=== PATIENT | female | born 1950 | race Caucasian/White ===

== ENCOUNTER → 2023-08-18 18:41 | Outpatient (REF) | payer OTHER, SELFPAY | LOC: MRI 18:41 | PROVIDERS: ATTENDING PHYSICIAN Physician Assistant; FAMILY PHYSICIAN Nurse Practitioner Adult Health; REFERRING PHYSICIAN Neurological Surgery | DX: Z98.890 Other specified postprocedural states (principal) | CPT/HCPCS: 72156; A9575 ==

== ENCOUNTER → 2023-11-12 08:37 | Outpatient (REF) | payer OTHER, SELFPAY | LOC: HWRAD 08:37 | PROVIDERS: ATTENDING PHYSICIAN Nurse Practitioner Adult Health | DX: E04.1 Nontoxic single thyroid nodule (principal); R91.8 Other nonspecific abnormal finding of lung field | CPT/HCPCS: 71250 ==

== ENCOUNTER → 2023-11-21 09:29 | Outpatient (REF) | payer OTHER, SELFPAY | LOC: HWRAD 09:29 | PROVIDERS: ATTENDING PHYSICIAN Nurse Practitioner Adult Health | DX: I65.21 Occlusion and stenosis of right carotid artery (principal); E04.1 Nontoxic single thyroid nodule | CPT/HCPCS: 76536; 93880 ==

== ENCOUNTER → 2024-01-27 17:03 | Outpatient (REF) | payer OTHER, SELFPAY | LOC: RAD 17:03 | PROVIDERS: ATTENDING PHYSICIAN Internal Medicine | DX: R60.0 Localized edema (principal) | CPT/HCPCS: 93971 ==

== ENCOUNTER → 2024-02-03 11:12 | Outpatient (REF) | payer OTHER, SELFPAY | LOC: HWRAD 11:12 | PROVIDERS: ATTENDING PHYSICIAN Nurse Practitioner Adult Health | DX: M25.561 Pain in right knee (principal) | CPT/HCPCS: 73564 ==

== ENCOUNTER 2024-05-24 20:27 | Observation (INO) | payer OTHER, SELFPAY ==
[2024-05-24] VITALS (7 sets, daily range): BP systolic 122–141; BP diastolic 63–81; BMI 27.7
[2024-05-24 16:28] LABS: ALT (SGPT) 12 U/L (0-35); AST (SGOT) 20 U/L (14-36); Albumin 4.4 g/dl (3.5-5.0); Alkaline Phosphatase 63 U/L (38-126); Blood Urea Nitrogen 8 mg/dl (7-17); Calcium 9.5 mg/dl (8.4-10.2); Carbon Dioxide 19 mmol/L (22-30); Chloride 112 mmol/L (98-107); Glucose 104 mg/dl (70-99); Potassium 4.2 mmol/L (3.5-5.1); Sodium 144 mmol/L (135-145); Total Bilirubin 0.8 mg/dl (0.2-1.3); Total Protein 6.9 g/dl (6.3-8.2); eGFR > 60.00
[2024-05-24 16:45] LABS: Troponin I < 0.012 ng/ml
[2024-05-24 17:43] LABS: % Basophils 0.2 % (0-2); % Eosinophils 0.4 % (0-6); % Immature Granulocytes 0.2 % (0-0.5); % Lymphocytes 15.6 % (20.5-51.1); % Monocytes 7.3 % (1.7-9.3); % Neutrophils 76.3 % (42.2-75.2); Absolute Lymphocytes 1.3 10^3/uL (1.2-3.4); Absolute Monocytes 0.6 10^3/uL (0.1-0.6); Absolute Neutrophils 6.5 10^3/uL (1.4-6.5); Hematocrit 42.8 % (37.0-47.0); Hemoglobin 13.7 g/dL (12.0-16.0); Mean Corpuscular Hgb 28.8 pg (27.0-31.0); Mean Corpuscular Volume 89.9 fL (81.0-99.0); Mean Platelet Volume 11.2 fL (7.4-10.4); Nucleated Red Blood Cells % 0 %; Platelet Count 184 10^3/uL (130-400); Red Blood Cell Count 4.76 10^6/uL (4.20-5.40); Red Cell Dist. Width 13.5 % (11.5-14.5); White Blood Cell Count 8.5 10^3/uL (4.8-10.8)
[2024-05-24] MEDS: ANTIVERT 25 MG PO ×2 (18:31→23:51)
--- NOTE | 2024-05-24 19:28 | ED.GENMED ---
History of Present Illness
General
Chief Complaint: Dizziness
Source: patient
Time Seen by Provider: 05/24/24 18:05
History of Present Illness
History of Present Illness:
73-year-old female with past medical history of hypertension, hyperlipidemia, COPD presenting to the emergency department for evaluation of vertigo that started earlier today, caused her to fall injuring her left knee, still with mild left knee pain
today but stating the vertigo is what brought to the ER for evaluation. Patient states that at rest symptoms seem to be improved if not nearly resolved. She notes that she has daily headaches and today's headache is not any different than her
usual but is otherwise denying any visual changes, focal weakness or numbness, chest pain or shortness of breath, nausea, vomiting or any other concerns. Social history was noted for former, no alcohol use, no drug use. No known family history of
any neurological complications. 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
Past History
Past History
ED Past Medical History: COPD, HTN and Other (Arthritis)
ED Past Surgical History: Brain and Orthopedic
Social History
Tobacco: Smoker
Alcohol: None
Drug: None
Personal:
Living: with family
Review of Systems
Review of Systems
All Other Systems: ROS reviewed and negative except as documented in HPI and ROS
Phy Exam
Physical Exam
Physical Exam:
GENERAL: Alert , in no apparent distress
HEAD: NCAT
EYE: pupils equal and reactive, 3 mm bilateral, EOMI, faint leftward 1 beat horizontal nystagmus
NECK: Supple,
ENT: o/p clr, mmm. Unable to visualize TM bilateral due to cerumen
CARDIAC: Regular rate and rhythm .
LUNGS: Clear breath sounds bilaterally, no acute respiratory distress, no wheezes/rales/rhonchi
NEUROLOGICAL: Alert and oriented, no focal neuro deficits, no dysmetria
SKIN: Warm and dry, skin intact.
MUSCULOSKELETAL: No edema, well perfused. Mild tenderness along the inferior patella of the left knee
PSYCH: Normal and appropriate interaction.
Scores
Heart Failure Risk
Heart Failure Risk Score: Not Applicable
Heart Score for Chest Pain Patients
STEMI patient?: Not applicable
Withdrawal Assessment of Alcohol
Withdrawal Assessment Completed?: Not applicable
Course
Orders/Labs/Results
Orders:
Orders
05/24/24 15:17
Electrocardiogram (*1) Urgent
Reason for Study: Vertigo / Dizzy
EKG- Treatment ONCE
05/24/24 15:33
Comprehensive Metabolic Panel Urgent
Troponin I Urgent
05/24/24 17:27
Complete Blood Count/With Diff Urgent
05/24/24 18:18
CT Head W/o Iv Contrast Urgent
Comment:
Reason For Exam: vertigo, hx cerebellar mass
Meclizine [Antivert] 25 mg PO NOW STA
Abnormal Lab Results
05/24/24 05/24/24
15:33 17:27
MCHC 32.0 L g/dL
(33.0-37.0)
MPV 11.2 H fL
(7.4-10.4)
Neutrophils % 76.3 H %
(42.2-75.2)
Lymphocytes % 15.6 L %
(20.5-51.1)
Chloride 112 H mmol/L
(98-107)
Carbon Dioxide 19 L mmol/L
(22-30)
Creatinine 0.5 L mg/dL
(0.6-1.0)
Glucose 104 H mg/dl
(70-99)
05/24/24 17:27
05/24/24 15:33
Vital Signs
Initial and Last Documented VS:
Initial Vital Signs
Temp Pulse Resp BP Pulse Ox
97.9 F 74 16 128/81 98
05/24/24 15:13 05/24/24 15:13 05/24/24 15:13 05/24/24 15:13 05/24/24 15:13
Last Documented Vital Signs
Temp Pulse Resp BP Pulse Ox
97.9 F 79 25 123/66 95
05/24/24 15:13 05/24/24 18:15 05/24/24 18:15 05/24/24 18:00 05/24/24 18:15
MDM/Problems Addressed
Differential Diagnosis Includes:
Peripheral versus central vertigo, recurring mass, electrolyte disturbance, M�ni�re's, BPPV, labyrinthitis
MDM/Problems Addressed:
73-year-old female presenting to the ER with 1 day of vertigo, had a fall yesterday with some mild left knee pain but no other injuries sustained. Patient is on Eliquis for recently diagnosed DVT to the right lower extremity with no provocation of
the DVT. No fevers or recent illnesses. Patient hemodynamically stable and in no acute distress. She does have a slight nystagmus noted on her exam. Will treat with Antivert. CT of the head ordered. Disposition pending
*Radiology
Radiology exam reviewed: radiology read reviewed
*Pulse Oximetry
Patient hypoxic: no
*Critical Care Note
Total Time (30-74mins, 75-104mins- exclusive of procedures): Not Applicable
Patient Management
Discussion with other providers: Hospitalist
Escalation/DeEscalation of care consider admission/obs:
Attempted to ambulate patient however she nearly fell but was caught prior to falling. Due to her persistent vertigo, fall risk and currently anticoagulated do not feel patient is safe to be discharged home. Will admit for continued evaluation of
vertigo. Hospitalist team accepts for continued evaluation treatment.
ED Attending Note
-
Portions of this chart may have been created with voice recognition software.� Occasional wrong word or��sound alike� substitutions may have occurred due to the inherent limitations of voice recognition software.
Discharge Plan
Departure
Patient Disposition: Admit
Date of Disposition: 05/24/24
Time of Disposition: 19:41
Presentation/result/management discussed w/ accepting MD/DO: Hospitalist
Patient with high blood pressure during this ER visit?: No
Discharge Problem:
Vertigo
Instructions: Vertigo (a Type of Dizziness) (DC)
Prescriptions:
New
meclizine 25 mg tablet
25 mg PO TID PRN (Reason: dizziness) Qty: 10 0RF
No Action
lisinopril 10 MG tablet
10 mg PO DAILY
cholecalciferol (vitamin D3) 2,000 UNIT tablet
2,000 unit PO DAILY
alprazolam 0.5 MG tablet
0.5 mg PO TID Qty: 0 0RF
Rx Instructions:
tid x 7 days
acetaminophen-codeine 300-30 mg Tablet
1 tab PO Q4HPRN PRN (Reason: pain) Qty: 8 0RF
ascorbic acid (vitamin C) [Vitamin C] 500 mg Tablet
500 mg PO DAILY
Prolia 60 mg/mL Syringe
60 mg SC [id number]
Trelegy Ellipta 200-62.5-25 mcg Blister With Device
1 inh INHALATION HS
aspirin 81 mg Capsule
81 mg PO DAILY
Probiotic 1 EACH capsule
1 ea PO DAILY
Rx Instructions:
x 7 days
oxycodone 5 mg Tablet
5 mg PO Q6H PRN (Reason: pain)
rosuvastatin [Crestor] 10 mg Tablet
10 mg PO DAILY
Referrals:
Wanda Ramirez CRNP [Family Provider] -
Interventions
Interventions:
*Risk Screen - Suicide Last Done: 05/24/24 15:16
*Neglect/Abuse Screening Last Done: 05/24/24 15:16
*ED COVID-19 Vaccine History Last Done: 05/24/24 15:15
ED- Neurological Assessment Last Done: 05/24/24 18:09
Discharge Date and Time
Print Language: LEBANESE
--- NOTE | 2024-05-24 20:12 | HPS.HSE ---
Family Physician
-
Family Physician: Wanda Ramirez
Chief Complaint
-
Dizziness
History of Present Illness
Patient is a 73y F with PMH significant for hypertension, anxiety / depression and COPD who presents to ED complaining of dizziness. Patient states that she suffered a [id number] in the bathroom yesterday. She landed on her knee and denies
any head injury, LOC, etc. She otherwise felt fine at that time and went to bed with no issues. When she awoke this AM, patient felt extremely dizzy. She has been unsteady throughout the day and has had significant difficulty walking. Patient
states that she fell 3 times today. Again, she denies any head injury with any of these falls. No chest pain, dyspnea. Patient denies any associated N/V. She denies any prior history of similar symptoms.
Medical History
Past Medical History
Past Medical History: Reports Other
Additional Past Medical History:
Migraine Headaches
Hypertension
Anxiety / Depression
COPD
Cervical Stenosis
Lumbar DDD
RLE DVT (01/2024)
Past Surgical History: Reports Other
Additional Past Surgical History:
Knee Arthroscopy
Right LUDIN
Right Clavicle Benign Tumor Removal
Left Wrist ORIF
Social History
Tobacco: Smoker (Current every day smoker. > 50 pack years total history.)
Alcohol: Occasional
Drug: None
Personal:
Living: With Family
Family History
Family History: Not pertinent
Allergies / Home Medications
Allergies reflects when Allergies were last updated in [facility].
Home Medications with original date entered in [facility]
Allergy/Medication List:
Allergies
Allergy/AdvReac Type Severity Reaction Status Date / Time
No Known Allergies Allergy Verified 04/03/23 12:28
Home Medications
cholecalciferol (vitamin D3) 50 mcg (2,000 unit) tablet 2,000 unit PO DAILY 07/14/19
ascorbic acid (vitamin C) 500 mg tablet (Vitamin C) 500 mg PO DAILY 04/02/23
aspirin 81 mg capsule 81 mg PO DAILY 04/02/23
denosumab 60 mg/mL subcutaneous syringe (Prolia) 60 mg SC [id number] 04/02/23
rosuvastatin 10 mg tablet (Crestor) 10 mg PO DAILY 04/02/23
alprazolam 0.5 mg tablet 0.5 mg PO BIDPRN PRN anxiety 05/24/24
amlodipine 10 mg tablet 10 mg PO DAILY 05/24/24
apixaban 5 mg tablet (Eliquis) 5 mg PO BID 05/24/24
fluticasone fur. 100 mcg-umeclid 62.5 mcg-vilant 25 mcg inhalat.powder (Trelegy Ellipta) 1 inh inhalation R HS 05/24/24
lisinopril 40 mg tablet 40 mg PO DAILY 05/24/24
magnesium oxide 400 mg PO DAILY 05/24/24
meclizine 25 mg tablet 25 mg PO TID PRN dizziness #10 tabs 05/24/24
oxycodone-acetaminophen 5 mg-325 mg tablet 1 tab PO Q6HPRN PRN severe pain 05/24/24
Review of Systems
-
History Source: Patient
A 12 point ROS was completed and negative except as noted: Yes
Constitutional: Denies Fever or Chills
EENT: Denies Sore Throat
Respiratory: Denies Cough or Trouble Breathing
Cardiac: Denies Chest Pain or Palpitations
Abdomen/GI: Denies Abdominal Pain, Nausea, Vomiting or Diarrhea
: Denies Dysuria or Frequency
Musculoskeletal: Denies Joint Pain or Edema
Neurological: Reports Dizzy; Denies Headache
Psych: Denies Depression or Anxiety
Physical Exam
Vital Signs
Vital Signs
Temp Pulse Resp BP Pulse Ox
97.9 F 79 25 123/66 95
05/24/24 15:13 05/24/24 18:15 05/24/24 18:15 05/24/24 18:00 05/24/24 18:15
Physical Exam
General: Other (73y F in no acute distress.)
HEENT: Moist mucous membranes and PERRLA
Respiratory: Clear; No Wheezes, Rales or Rhonchi
Cardiac: S1/S2 and Regular Rhythm; No Murmur
GI: Soft, Non Tender, Non Distended and Normal Bowel Sounds
Musculoskeletal: No Clubbing, No Cyanosis and No Edema
Neuro: AO x 3 and Other (Cerebellar signs intact. Unsteady gait / reported dizziness with sitting upright / standing.)
Laboratory Results
-
05/24/24 17:27
05/24/24 15:33
Laboratory Results
Total Bilirubin 0.8 mg/dl (0.2-1.3) 05/24/24 15:33
AST 20 U/L (14-36) 05/24/24 15:33
ALT 12 U/L (0-35) 05/24/24 15:33
Alkaline Phosphatase 63 U/L (38-126) 05/24/24 15:33
Troponin I < 0.012 ng/ml 05/24/24 15:33
Impression/Plan
-
A/P: Patient is a 73y F with PMH significant for hypertension, COPD and anxiety / depression who presents to ED complaining of dizziness and unsteady gait.
Dizziness / Ataxia
- Observe overnight for further evaluation and treatment.
- Supportive care with IVFs, meclizine PRN, etc.
- PT / OT / Vestibular evaluation in the AM.
- Follow for any neurologic changes.
- MRI brain to rule out central etiology.
Benign Hypertension
- Stable. Continue home medications with holding parameters.
COPD without Acute Exacerbation
- Stable. Continue Trelegy.
- Nebs PRN.
RLE DVT
DVT Prophylaxis
- DVT diagnosed 01/2024.
- No new / persistent symptoms.
- Continue Eliquis.
Code Status: Full
[2024-05-24] MEDS: NSS 1000 IV (23:45)
--- NOTE | 2024-05-24 23:45 | PTCARENOTE ---
Pt arrived to 3W from ED via stretcher. Pt able to ambulate into room. Pt oriented to unit. VSS. Pt resting comfortably in bed. Call reeves within reach.
[2024-05-25] VITALS (8 sets, daily range): BP systolic 104–148; BP diastolic 51–82; PULSE 81–86
[2024-05-25] MEDS: SYMBICORT 80/4.5 MCG INHALER INH (01:16)
[2024-05-25 06:43] LABS: Hematocrit 39.4 % (37.0-47.0); Hemoglobin 13.2 g/dL (12.0-16.0); Mean Corp Hgb Conc. 33.5 g/dL (33.0-37.0); Mean Corpuscular Hgb 29.3 pg (27.0-31.0); Mean Corpuscular Volume 87.6 fL (81.0-99.0); Mean Platelet Volume 11.8 fL (7.4-10.4); Platelet Count 164 10^3/uL (130-400); Red Cell Dist. Width 13.3 % (11.5-14.5); White Blood Cell Count 6.7 10^3/uL (4.8-10.8)
[2024-05-25 07:19] LABS: Blood Urea Nitrogen 7 mg/dl (7-17); Calcium 8.5 mg/dl (8.4-10.2); Carbon Dioxide 20 mmol/L (22-30); Chloride 115 mmol/L (98-107); Estimated Creatinine Clearance 68 ml/min; Glucose 80 mg/dl (70-99); Magnesium 2.3 mg/dl (1.6-2.3); Potassium 4.2 mmol/L (3.5-5.1); Sodium 142 mmol/L (135-145); eGFR > 60.00
[2024-05-25] MEDS: SYMBICORT 80/4.5 MCG INHALER 2 PUFF INH ×2 (07:28→19:48)
[2024-05-25] MEDS: SPIRIVA RESPIMAT 2.5 MCG 2 PUFF INH (07:28)
[2024-05-25 07:40] LABS: TSH Reflex To Free T4 < 0.02 uIU/ml (0.47-4.68)
[2024-05-25] MEDS: NORVASC 10 MG PO (08:00)
[2024-05-25] MEDS: ZESTRIL 40 MG PO (08:00)
[2024-05-25] MEDS: ELIQUIS 5 MG PO ×2 (08:00→21:09)
[2024-05-25] MEDS: ANTIVERT 25 MG PO (08:00)
[2024-05-25] MEDS: CRESTOR 10 MG PO (08:00)
[2024-05-25 10:05] LABS: Troponin I < 0.012 ng/ml
--- NOTE | 2024-05-25 10:10 | CON.CAR ---
Addendum entered and electronically signed by Jhon Romero MD 05/25/24 13:29:
I saw and examined the patient.
The SECURITIES COMPLIANCE EXAMINER's note was reviewed and I agree with the note.
Comment: She presents with multiple episodes of dizziness only upon standing that promptly resolve with sitting/laying down. Only once she said spinning but she really said she was not seeing a rotary sensation. Tele showed a 12-14 second run of
NSVT and 2-3 short 2-3.5 second sinus pauses WITHOUT symptoms. No long pauses seen yet.
Let's plan on echo and more telemetry.
Original Note:
Consultation
Consultation Request
Date/Time Consultation Requested: 05/25/2024 08:30
Date/Time Consultation Performed: 05/25/2024 09:15
Requesting Provider: Dr. David Gale
Performing Provider: ADONIS Maldonado for Dr. Romero
Reason for Consultation: Arrhythmia
Medical History
-
Chief Complaint: Dizziness
History of Present Illness:
Cortez Shi is a 73-year-old female with atherosclerosis of the carotid artery and aorta, hypertension, dyslipidemia, COPD, pulmonary nodules, subclinical hypothyroidism, anxiety, depression, TIO positive, and right lower extremity DVT (on
apixaban), and current smoker who presented to the emergency department with a chief complaint of dizziness. She had multiple falls at home related to dizziness. She denies head injury and loss of consciousness. After the first episode she had
difficulties getting herself off the floor. Every time she picked her head up off the floor she felt like she was on a boat. No sensation of the room spinning but she had worsening dizziness with movement. She had no nausea nor vomiting. No
chest pain. Cardiology was consulted for a 10-second pause and ventricular tachycardia. At present, the patient feels 'a world of difference' compared to yesterday. She is up eating breakfast and has no complaints of dizziness.
Past Medical History
Past Medical History: COPD, HTN, Hypercholesterolemia, Hypothyroidism, Psychiatric (Anxiety, depression) and Other (DVT [on apixaban], TIO positive, Schwann Eshter)
Past Surgical History: Orthopedic
Social History
Tobacco: Smoker
Alcohol: None
Drug: None
Personal:
Living: With Family
Employment: Retired
Family History
Family History: Reviewed & Not Pertinent (Denies early CAD and SCD)
Allergies / Home Medications
Allergy/AdvReac Type Severity Reaction Status Date / Time
No Known Allergies Allergy Verified 04/03/23 12:28
�Medication �Instructions �Recorded �Confirmed �Type
cholecalciferol (vitamin D3) 50 2,000 unit PO DAILY 07/14/19 05/24/24 History
mcg (2,000 unit) tablet
ascorbic acid (vitamin C) 500 mg 500 mg PO DAILY 04/02/23 05/24/24 History
tablet (Vitamin C)
aspirin 81 mg capsule 81 mg PO DAILY 04/02/23 05/24/24 History
denosumab 60 mg/mL subcutaneous 60 mg SC [id number] 04/02/23 05/24/24 History
syringe (Prolia)
rosuvastatin 10 mg tablet (Crestor) 10 mg PO DAILY 04/02/23 05/24/24 History
alprazolam 0.5 mg tablet 0.5 mg PO BIDPRN PRN anxiety 05/24/24 05/24/24 History
amlodipine 10 mg tablet 10 mg PO DAILY 05/24/24 05/24/24 History
apixaban 5 mg tablet (Eliquis) 5 mg PO BID 05/24/24 05/24/24 History
fluticasone fur. 100 mcg-umeclid 1 inh inhalation R HS 05/24/24 05/24/24 History
62.5 mcg-vilant 25 mcg
inhalat.powder (Trelegy Ellipta)
lisinopril 40 mg tablet 40 mg PO DAILY 05/24/24 05/24/24 History
magnesium oxide 400 mg PO DAILY 05/24/24 05/24/24 History
meclizine 25 mg tablet 25 mg PO TID PRN dizziness #10 tabs 05/24/24 Rx
oxycodone-acetaminophen 5 mg-325 1 tab PO Q6HPRN PRN severe pain 05/24/24 05/24/24 History
mg tablet
Review of Systems
-
History Source: Patient
All other systems: Negative unless noted
Constitutional: No Symptoms
EENT: No Symptoms
Respiratory: No Symptoms
Cardiac: No Symptoms
Abdomen/GI: No Symptoms
: No Symptoms
Musculoskeletal: No Symptoms
Skin: No Symptoms
Neurological: No Symptoms
Endocrine: No Symptoms
Hematologic/Lymphatic: No Symptoms
Physical Exam
Vital Signs
Temp Pulse Resp BP Pulse Ox
97.5 F 71 16 121/70 95
05/25/24 08:21 05/25/24 08:21 05/25/24 08:21 05/25/24 08:21 05/25/24 08:21
Lab Results
05/25/24 05:09
05/25/24 05:09
Troponin I < 0.012 ng/ml 05/25/24 09:02
Physical Exam
General: Well Developed, Well Nourished, No Apparent Distress and Comfortable
HEENT: Normocephalic, Anicteric and Moist Mucous Membranes
Respiratory: Clear and Non Labored Respirations
Cardiac: S1/S2 and Regular Rhythm; Negative Peripheral Edema
Breast: Deferred by me
GI: Soft, Non Tender, Non Distended and Normal Bowel Sounds
Rectal: Deferred by Provider
Genito-urinary: No Costovertebral Tender
Musculoskeletal: No Clubbing, No Cyanosis and No Edema
Skin: Warm and Dry
Neuro: AO x 3
Hematologic/Lymphatic: No Lymphadenopathy
Psych: Calm
Impression / Plan
-
IMPRESSION/PLAN: 73F with atherosclerosis of the carotid artery and aorta, hypertension, dyslipidemia, COPD, pulmonary nodules, subclinical hypothyroidism, anxiety, depression, TIO positive, and right lower extremity DVT (on apixaban), and current
smoker who presented to the emergency department with a chief complaint of dizziness.
Dizziness with ataxia
-Drastically improved overnight with meclizine and IV fluids
-Brain MRI without acute pathology
Ventricular arrythmia
-Electrolytes stable
-RSR' complexes with a taller left rabbit ear is in favor of NSVT
-Toby sign (slurring of the S wave)
-Echocardiogram pending
Sinus pause, greater than three seconds, follow telemetry
Atrial tachycardia, follow telemetry
Atherosclerosis of the carotid artery and aorta, goal LDL < 70
Hypertension, stable on lisinopril and amlodipine
RLE DVT, diagnosed 01/2024, on apixaban
Data Reviewed
-
EKG: Report Reviewed by me (Sinus rhythm, PACs, rate 72)
MRI: Report Reviewed by me (Brain: No acute intracranial abnormality.)
Labs: Labs Reviewed by me
Old Records: Reviewed
--- NOTE | 2024-05-25 11:10 | W.PN.HOSP.TC ---
Today's Communication/Plan
-
prn Meclizine
PT/Vestibular therapy
await Echo and further Cards recs
Assessment / Plan
Assessment / Plan
Assessment:
Dizziness/Ataxia
- Supportive care with IVFs, meclizine PRN, etc.
- PT/OT/Vestibular evaluation
- MRI negative
Vtach on tele
Sinus pause ~ 3 seconds on tele
Atach
- follow tele
- lytes stable
- Echo pending
- Cards following
Benign Hypertension
- Stable. Continue home medications with holding parameters.
COPD without Acute Exacerbation
- Stable. Continue Trelegy.
- Nebs PRN.
RLE DVT
DVT Prophylaxis
- DVT diagnosed 01/2024.
- No new/persistent symptoms.
- Continue Eliquis.
Code Status: Full
Anticipated Discharge: Within 24 hours
Subjective/Interval History
-
Date of Service: May 25, 2024
reports dizziness in bed, tele with NSR currently
no other complaints
Objective Data
-
Labs:
Laboratory Results
05/25/24
05:09
WBC 6.7
Hgb 13.2
Hct 39.4
Plt Count 164
Sodium 142
Potassium 4.2
Chloride 115 H
Carbon Dioxide 20 L
BUN 7
Creatinine 0.4 L
Glucose 80
Calcium 8.5
Vital Signs:
Vital Signs
Temp Pulse Resp BP Pulse Ox
97.5 F 71 16 121/70 95
05/25/24 08:21 05/25/24 08:21 05/25/24 08:21 05/25/24 08:21 05/25/24 08:21
I&O
05/24/24 05/25/24 05/26/24
06:59 06:59 06:59
Intake Total 480 / 480
Balance 480 / 480
Physical Exam
-
General: No Apparent Distress
HEENT: Normocephalic and Atraumatic
Respiratory: Negative Wheezes
Cardiac: Regular Rhythm and S1/S2
GI: Soft and Nontender
Genito-urinary: No Costovertebral Tender
Musculoskeletal: No Edema
Neuro: AO x 3
Hematologic / Lymphatic: No Lymphadenopathy
Psych: Calm
Data Reviewed
-
Total Time Spent with Patient (in minutes): 42
Labs: Labs Reviewed by me
--- NOTE | 2024-05-25 12:03 | PTCARENOTE ---
pt with change in rhythm on tele monitor (see paper chart). MD made aware. Cardiology consulted. Will continue to monitor.
[2024-05-25] MEDS: NSS 1000 IV (12:20)
[2024-05-25] MEDS: SODIUM BICARBONATE 1150 MEQ IV (14:24)
--- NOTE | 2024-05-25 16:22 | CM ---
Alert awake oriented patient who lives with her Nito and dgt Claudine in a 1 story home with 1 steps to enter. She is independent in drivng and all activates of daily living.She has no adaptive devices. Payne letter given explained signed on
chart.
Had [facility] in past . No SNF hx
Pharmacy [facility]
PCP Dr Wanda Ramirez
PLAN Home with no anticipated needs
[2024-05-25] MEDS: OFIRMEV 100 IV (21:08)
[2024-05-26 03:00] VITALS: BP 104/75
[2024-05-26 06:12] LABS: Blood Urea Nitrogen 7 mg/dl (7-17); Calcium 8.4 mg/dl (8.4-10.2); Carbon Dioxide 24 mmol/L (22-30); Chloride 112 mmol/L (98-107); Estimated Creatinine Clearance 68 ml/min; Glucose 96 mg/dl (70-99); Magnesium 2.3 mg/dl (1.6-2.3); Potassium 4.1 mmol/L (3.5-5.1); Sodium 144 mmol/L (135-145); eGFR > 60.00
[2024-05-26 07:41] VITALS: BP 111/69
[2024-05-26] MEDS: SPIRIVA RESPIMAT 2.5 MCG 2 PUFF INH (07:55)
[2024-05-26] MEDS: SYMBICORT 80/4.5 MCG INHALER 2 PUFF INH (07:55)
[2024-05-26] MEDS: ZESTRIL 40 MG PO (07:58)
[2024-05-26] MEDS: ELIQUIS 5 MG PO (07:58)
[2024-05-26] MEDS: CRESTOR 10 MG PO (07:58)
[2024-05-26] MEDS: NORVASC 10 MG PO (07:58)
[2024-05-26 10:25] VITALS: BP 138/82; BP 149/97; BP 173/94; PULSE 86; PULSE 96
[2024-05-26 11:05] VITALS: BP 131/71
--- NOTE | 2024-05-26 11:30 | W.PN.CD ---
Addendum entered and electronically signed by Jhon Romero MD 05/26/24 11:40:
Clinically her dizziness only with standing and resolving immediately after laying down favored orthostasis or benign paroxysmal positional vertigo (BPPV)�but she could not recall spinning and orthostatic vital signs were not impressive.
Original Note:
Today's Communication / Plan
-
OK for home with plans for 30 day monitor and likely outpatient stress test
Impression / Plan
-
Background: 73F with atherosclerosis of the carotid artery and aorta, hypertension, dyslipidemia, COPD, pulmonary nodules, subclinical hypothyroidism, anxiety, depression, TIO positive, and right lower extremity DVT (on apixaban), and current smoker
who presented to the emergency department with a chief complaint of dizziness.
Dizziness with ataxia
- No recurrence
-Drastically improved overnight with meclizine and IV fluids
-Brain MRI without acute pathology
Ventricular arrhythmia => 12-13 seconds of NSVT, not that fast
-Electrolytes stable
-RSR' complexes with a taller left rabbit ear is in favor of NSVT
-Toby sign (slurring of the S wave)
-Echocardiogram is normal
- Suggest observation and telemetry, outpatient stress test will be considered
Sinus pause, greater than three seconds, follow telemetry
- No symptoms with modest sinus pauses
- No significant pauses overnight
Short run of Atrial tachycardia => no recurrence and no
Atherosclerosis of the carotid artery and aorta, goal LDL < 70
Hypertension, stable on lisinopril and amlodipine
RLE DVT, diagnosed 01/2024, on apixaban
Subjective:
No complaints
Physical Exam
Vital Signs/Labs
Vital Signs
Temp Pulse Resp BP Pulse Ox
98.4 F 83 17 131/71 96
05/26/24 11:05 05/26/24 11:05 05/26/24 11:05 05/26/24 11:05 05/26/24 11:05
05/25/24 05/26/24 05/27/24
06:59 06:59 06:59
Actual Weight 64.3 kg
05/25/24 05:09
05/26/24 05:13
Magnesium 2.3 mg/dl (1.6-2.3) 05/26/24 05:13
Free T4 2.10 ng/dl (0.78-2.19) 05/25/24 05:09
LAB Results
05/24/24 05/25/24
15:33 09:02
Troponin I < 0.012 < 0.012
Physical Exam
Constitutional: No acute distress
EENT: Anicteric
Cardiovascular: Rhythm & rate is regular and Pedal edema is absent
Respiratory: Respiratory effort normal and Lungs clear to auscul.
GI: Soft and Distention absent
Neuro/Psych: AO x 3
Data Reviewed
-
Date of Service: May 26, 2024
--- NOTE | 2024-05-26 11:38 | W.PN.HOSP.TC ---
Today's Communication/Plan
-
dc
Assessment / Plan
Assessment / Plan
Assessment:
Dizziness/Ataxia
- Supportive care with IVFs, meclizine PRN, etc.
- PT/OT/Vestibular evaluation outpatient - script given
- MRI negative
Vtach on tele
Sinus pause ~ 3 seconds on tele
Atach
- follow tele; no further events overnight
- lytes stable
- Echo normal
- Cards follow up outpatient after 30 day heart monitoring period.
Benign Hypertension
- Stable. Continue home medications with holding parameters.
COPD without Acute Exacerbation
- Stable. Continue Trelegy.
- Nebs PRN.
RLE DVT
DVT Prophylaxis
- DVT diagnosed 01/2024.
- No new/persistent symptoms.
- Continue Eliquis.
Code Status: Full
More than 30 minutes spent in discharge including
Final examination of the patient
Summarizing hospital stay
Instructions for continuing care to all relevant caregivers
Preparation of discharge records, prescriptions, and referral forms
Total time spent (in minutes): 41
Anticipated Discharge: Today
Subjective/Interval History
-
Date of Service: May 26, 2024
no further dizziness
tele without further occurrence of pauses/VT
Objective Data
-
Labs:
Laboratory Results
05/26/24
05:13
Sodium 144
Potassium 4.1
Chloride 112 H
Carbon Dioxide 24
BUN 7
Creatinine 0.5 L
Glucose 96
Calcium 8.4
Vital Signs:
Vital Signs
Temp Pulse Resp BP Pulse Ox
98.4 F 83 17 131/71 96
05/26/24 11:05 05/26/24 11:05 05/26/24 11:05 05/26/24 11:05 05/26/24 11:05
I&O
05/25/24 05/26/24 05/27/24
06:59 06:59 06:59
Intake Total 660 / 660 480 / 480
Balance 660 / 660 480 / 480
Physical Exam
-
General: No Apparent Distress
HEENT: Normocephalic and Atraumatic
Respiratory: Negative Wheezes
Cardiac: Regular Rhythm and S1/S2
GI: Soft and Nontender
Genito-urinary: No Costovertebral Tender
Musculoskeletal: No Edema
Neuro: AO x 3
Hematologic / Lymphatic: No Lymphadenopathy
Psych: Calm
Data Reviewed
-
Total Time Spent with Patient (in minutes): 42
Labs: Labs Reviewed by me
--- NOTE | 2024-05-26 11:46 | W.DS.TRANS ---
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
-
Discharge Instructions:
Discharge Diagnosis/Procedures BPPV, cardiac dysrhythmia
Diet Regular
Activity As tolerated
Bathing Restrictions None
Other Services PT,OT
Instructions:
Stand-Alone Forms:
Changes to Home Medications: No
Discharge Medications:
DC Medications w/original date entered in [facility]
cholecalciferol (vitamin D3) 50 mcg (2,000 unit) tablet 2,000 unit PO DAILY Supplement 07/14/19
ascorbic acid (vitamin C) 500 mg tablet (Vitamin C) 500 mg PO DAILY Supplement 04/02/23
aspirin 81 mg capsule 81 mg PO DAILY Blood Clot Prevention/Tx 04/02/23
denosumab 60 mg/mL subcutaneous syringe (Prolia) 60 mg SC [id number] OSTEOPOROSIS 04/02/23
rosuvastatin 10 mg tablet (Crestor) 10 mg PO DAILY High Cholesterol 04/02/23
alprazolam 0.5 mg tablet 0.5 mg PO BIDPRN PRN anxiety 05/24/24
amlodipine 10 mg tablet 10 mg PO DAILY Blood Pressure 05/24/24
apixaban 5 mg tablet (Eliquis) 5 mg PO BID Blood Clot Prevention/Tx 05/24/24
fluticasone fur. 100 mcg-umeclid 62.5 mcg-vilant 25 mcg inhalat.powder (Trelegy Ellipta) 1 inh inhalation R HS Lung/Breathing Issues 05/24/24
lisinopril 40 mg tablet 40 mg PO DAILY Blood Pressure 05/24/24
magnesium oxide 400 mg PO DAILY Electrolyte Repletion 05/24/24
meclizine 25 mg tablet 25 mg PO TID PRN dizziness #10 tabs 05/24/24
oxycodone-acetaminophen 5 mg-325 mg tablet 1 tab PO Q6HPRN PRN severe pain 05/24/24
Home Medication Changes
Pending Results: No
Total time spent discharging patient (in min): 41
--- NOTE | 2024-05-26 12:49 | CM ---
Met with patient at bedside; she reported that will provide transport home
Plan: Discharge to home today; no needs
[2024-05-26] MEDS: ANTIVERT 25 MG PO (12:57)
== END 2024-05-26 13:35 | disposition home or self-care (01) ==
LOC: 3 WEST ACU 20:27
PROVIDERS: Emergency Medicine; ADMITTING PHYSICIAN Hospitalist; ATTENDING PHYSICIAN Internal Medicine; CONSULT PHYSICIAN Internal Medicine Cardiovascular Disease; EMERGENCY PHYSICIAN Emergency Medicine; FAMILY PHYSICIAN Nurse Practitioner Adult Health
DX: H81.10 Benign paroxysmal vertigo, unspecified ear (principal); I47.19 Other supraventricular tachycardia; I10 Essential (primary) hypertension; E78.00 Pure hypercholesterolemia, unspecified; J44.9 Chronic obstructive pulmonary disease, unspecified; M19.90 Unspecified osteoarthritis, unspecified site; E03.8 Other specified hypothyroidism; F41.8 Other specified anxiety disorders; F17.210 Nicotine dependence, cigarettes, uncomplicated; I65.29 Occlusion and stenosis of unspecified carotid artery; I70.0 Atherosclerosis of aorta; Z79.01 Long term (current) use of anticoagulants; Z79.899 Other long term (current) drug therapy; Z86.718 Personal history of other venous thrombosis and embolism
CPT/HCPCS: 70450; 70553; 80048; 80053; 83735; 84439; 84443; 84484; 85025; 85027; 93005; 93306; 94640; 97112; 97163; 97166; 99285; 99406; A9575; G0378

== ENCOUNTER → 2024-06-02 15:04 | Outpatient (REF) | payer OTHER, SELFPAY | LOC: HWRAD 15:04 | PROVIDERS: ATTENDING PHYSICIAN Nurse Practitioner Adult Health | DX: M25.562 Pain in left knee (principal) | CPT/HCPCS: 73564 ==

== ENCOUNTER → 2024-06-21 08:53 | Outpatient (REF) | payer OTHER, SELFPAY | LOC: HWRAD 08:53 | PROVIDERS: ATTENDING PHYSICIAN Nurse Practitioner Adult Health | DX: R60.0 Localized edema (principal) | CPT/HCPCS: 93971 ==

== ENCOUNTER → 2024-10-25 09:28 | Outpatient (REF) | payer OTHER, SELFPAY | LOC: HWRAD 09:28 | PROVIDERS: ATTENDING PHYSICIAN Internal Medicine Endocrinology, Diabetes & Metabolism; FAMILY PHYSICIAN Nurse Practitioner Adult Health | DX: E04.2 Nontoxic multinodular goiter (principal); E05.90 Thyrotoxicosis, unspecified without thyrotoxic crisis or storm | CPT/HCPCS: 76536 ==

== ENCOUNTER → 2025-04-18 09:13 | Outpatient (REF) | payer OTHER, SELFPAY | LOC: HWRAD 09:13 | PROVIDERS: ATTENDING PHYSICIAN Nurse Practitioner Adult Health | DX: F17.210 Nicotine dependence, cigarettes, uncomplicated (principal) | CPT/HCPCS: 71271 ==

== ENCOUNTER → 2025-05-24 18:28 | Outpatient (REF) | payer OTHER, SELFPAY | LOC: MRI 18:28 | PROVIDERS: ATTENDING PHYSICIAN Neurological Surgery; FAMILY PHYSICIAN Nurse Practitioner Adult Health | DX: D33.4 Benign neoplasm of spinal cord (principal) | CPT/HCPCS: 72156; A9575 ==

== ENCOUNTER → 2025-06-09 10:54 | Outpatient (REF) | payer OTHER, SELFPAY | LOC: HWWDC 10:54 | PROVIDERS: ATTENDING PHYSICIAN Nurse Practitioner Adult Health | DX: Z12.31 Encounter for screening mammogram for malignant neoplasm of breast (principal) | CPT/HCPCS: 77063; 77067 ==